=== PATIENT | female | born 1980 | race African-American/Black ===

== ENCOUNTER → 2019-04-06 | Outpatient (CLI) | payer MEDICARE | END | disposition home or self-care (01) | LOC: OIH 04-05 09:56 | PROVIDERS: ATTEND Internal Medicine | DX: J45.909 Unspecified asthma, uncomplicated (principal); R07.9 Chest pain, unspecified | CPT/HCPCS: 71046 ==

== ENCOUNTER 2020-05-28 09:06 | Observation (INO) | payer OTHER ==
[2020-05-28] VITALS (10 sets, daily range): BP systolic 126–173; BP diastolic 77–110
[~2020-05-28] VITALS: Ht 170.2 cm; Wt 90.7 kg
[2020-05-28 10:12] LABS: BASOPHILS % (AUTO) 0.9 % (0.0-5.0); EOSINOPHILS % (AUTO) 0.1 % (0.0-8.0); HEMATOCRIT 46.5 % (36-48); LYMPHOCYTES % (AUTO) 10.7 % (21.0-51.0); MEAN CORPUSCULAR HEMOGLOBIN 30.6 pg (27.0-33.0); MEAN CORPUSCULAR HGB CONC 33.3 g/dL (32.0-36.0); MEAN CORPUSCULAR VOLUME 91.9 fL (79-99); MONOCYTES % (AUTO) 8.3 % (3.0-13.0); NEUTROPHILS % (AUTO) 72.8 % (40.0-77.0); NUCLEATED RED BLOOD CELLS 0.2 % (0.0-0.19); PLATELET COUNT (AUTO) 263 K/uL (130-400); RED BLOOD CELL COUNT(AUTO) 5.06 MIL/uL (4.00-5.50); RED CELL DISTRIBUTION WIDTH 14.7 % (11.0-15.5); WHITE BLOOD COUNT (AUTO) 9.6 K/uL (4.8-10.8)
[2020-05-28 10:19] LABS: CARBON DIOXIDE 32 mmol/L (21-32); CHLORIDE 102 mmol/L (101-111); GLOMERULAR FILTR. RATE CALC 79 mL/min (>60); GLUCOSE,RANDOM 143 mg/dL (70-105); POTASSIUM 3.8 mmol/L (3.5-5.1); SODIUM SERUM 137 mmol/L (136-145); UREA NITROGEN, BLOOD 14 mg/dL (7-18)
[2020-05-28 10:24] LABS: ALANINE AMINOTRANSFERASE 47 U/L (12-78); ALBUMIN 2.4 g/dL (3.5-5.0); ASPARTATE AMINOTRANSFERASE 49 U/L (10-37); BILIRUBIN,TOTAL 0.3 mg/dL (0.2-1.0); TOTAL PROTEIN, SERUM 5.9 g/dL (6.0-8.3)
[2020-05-28 10:30] LABS: AMMONIA < 3 umol/L (11-32)
[2020-05-28 10:36] LABS: INR 0.85 (0.85-1.15); PARTIAL THROMBOPLASTIN TIME 21.4 SEC (26.3-35.5); PROTHROMBIN TIME 9.2 SEC (9.6-11.6)
--- NOTE | 2020-05-28 13:36 | NUR ---
U/S GD RENAL BX PROCEDURE PERFORMED BY DR Yoel TINSLEY. PUNCTURE SITE LT LOWER BACK AND PATIENT TOLERATED PROCEDURE WELL. SPECIMEN X 3 COLLECTED AND SENT TO LAB. END OF PROCEDURE AT 1325. BIOPSY NEEDLE REMOVED AND DRESSING APPLIED. NO BLEEDING NOTED. REPORT GIVEN TO DALE BAIRD AND PATIENT TRANSPORTED TO [facility] VIA BED AT 1345. AAO X3 WITH NO C/O PAIN.
[2020-05-28] MEDS ORDERED: ONDANSETRON HCL 4 MG/2 ML VIAL IVP PRN (15:45)
[2020-05-28] MEDS ORDERED: ACETAMINOPHEN 325 MG TAB PO PRN (15:45)
--- NOTE | 2020-05-28 20:00 | NUR ---
assessment note patient awake alert, ox3, no sob , no c/o pain at this time, patients sister at bedside, extensive discussion regarding plan of care and expected outcome, both verbalize understanding via back, dressing left lateral/back d/i, racking urine , urine clear yellow no bleeding, call burrell at reach
[2020-05-29 03:35] VITALS: BP 134/86
[2020-05-29 05:34] LABS: HEMATOCRIT 41.5 % (36-48); MEAN CORPUSCULAR HEMOGLOBIN 30.5 pg (27.0-33.0); MEAN CORPUSCULAR HGB CONC 33.3 g/dL (32.0-36.0); MEAN CORPUSCULAR VOLUME 91.6 fL (79-99); PLATELET COUNT (AUTO) 217 K/uL (130-400); RED BLOOD CELL COUNT(AUTO) 4.53 MIL/uL (4.00-5.50); RED CELL DISTRIBUTION WIDTH 14.6 % (11.0-15.5); WHITE BLOOD COUNT (AUTO) 7.8 K/uL (4.8-10.8)
[2020-05-29 06:00] LABS: BAND NEUTROPHILS % (MANUAL) 4 % (0-2); LYMPHOCYTES % (MANUAL) 24 % (22-44); MAN.DIFF COMMENT-IMPRESSION MANUAL DIFFERENTIAL; MONOCYTES % (MANUAL) 12 % (2-9); REACTIVE LYMPHOCYTES 1 % (0-0); SEGMENTED NEUTROPHILS % 59 % (40-70)
[2020-05-29 06:23] LABS: CREATININE 0.9 mg/dL (0.5-1.5); POTASSIUM 3.8 mmol/L (3.5-5.1)
[2020-05-29 08:35] VITALS: BP 127/91
[2020-05-29 11:55] VITALS: BP 128/104
--- NOTE | 2020-05-29 14:21 | NUR ---
MET WITH PT AND SISTER AT BEDSIDE PATIENT W HISTORY OF LUPUS X 16 YEARS MOVES FROM [place] TO [facility] RECENTLY FOR THE WARMTH, REFERRAL TO NEPHROLOGY IN JANUARY FOR RENAL FAILURE LIVES ALONE, NO DME, NO PROVIDER SERVICES BUT IN PROCESS.. WEAK AT TIMES, MIGHT NEED DME ON THIS ADMIT, VERY SWOLLEN TO BILATERAL LE, PT EVAL PENDING. WILL FOLLOW UP WITH ADMIT MD FOR HH /[place] CM TO FOLLOW Addendum: 05/29/20 at 1428 by REYNALDO LACKEY RN CM Amended: Links added.
--- NOTE | 2020-05-29 16:05 | NUR ---
NUTRITION EDUCATION RD provided Anti-Inflammatory Nutrition Education. Pt with various foods not tolerated. Pt well aware of trigger foods. Needing assistance with meal planning and consuming adequate protein. RD was able to provide meal planning chart and food guides. Pt was appreciative of handouts provided. Addendum: 05/29/20 at [address] RD Amended: Links added.
--- NOTE | 2020-05-29 16:18 | NUR ---
PT FOR DC TODAY. GAVE PT EVAL AND RECOMMENDATION FOR ROLLING WALKER FOR PATIENT TO TAKE TO DR. PATEL'S OFFICE. VERBALIZED UNDERSTANDING Addendum: 05/29/20 at 1620 by REYNALDO LACKEY RN CM Amended: Links added.
[2020-05-29 16:20] VITALS: BP 130/93
--- NOTE | 2020-05-29 16:35 | NUR ---
d/c PT IS AAOX4 VS STABLE URINE YELLOW AND NO PAIN. PT LEAVING VIA WHEELCHAIR IN PVT CAR D/C INSTRUCTIONS AND LABS WERE GIVEN TO PATIENT AND INSTRUCTED TO F/U WITH DR. TINSLEY IN 1-[address] PATEL IN 2-3 DAYS. NO COMPLICATIONS UPON D/C
== END 2020-05-29 16:45 | disposition home or self-care (01) ==
LOC: EDH 09:06 → 4BH 09:07
PROVIDERS: ADMIT Internal Medicine Nephrology; ATTEND Internal Medicine Nephrology
DX: M32.14 Glomerular disease in systemic lupus erythematosus (principal); R80.9 Proteinuria, unspecified; N04.9 Nephrotic syndrome with unspecified morphologic changes; I34.0 Nonrheumatic mitral (valve) insufficiency; R77.0 Abnormality of albumin; R76.0 Raised antibody titer; N28.89 Other specified disorders of kidney and ureter; Z88.0 Allergy status to penicillin; Z88.1 Allergy status to other antibiotic agents; Z88.2 Allergy status to sulfonamides; Z88.5 Allergy status to narcotic agent; Z88.8 Allergy status to other drugs, medicaments and biological substances
CPT/HCPCS: 36415 ×2; 50200; 76942; 80048; 80053; 81025; 82140; 82948 ×2; 85025 ×2; 85610; 85730; 97161; 99284; G0378 ×16; G8978; G8979; G8980; G8981; G8982; G8983

== ENCOUNTER → 2020-08-21 | Outpatient (CLI) | payer OTHER | END | disposition home or self-care (01) | LOC: OIH 15:53 | PROVIDERS: ATTEND Internal Medicine | DX: I10 Essential (primary) hypertension (principal) | CPT/HCPCS: 71046 ==

== ENCOUNTER → 2020-12-02 | Outpatient (CLI) | payer OTHER | END | disposition home or self-care (01) | LOC: SHCH 13:30 | PROVIDERS: ATTEND Internal Medicine Cardiovascular Disease | DX: I08.1 Rheumatic disorders of both mitral and tricuspid valves (principal); I30.0 Acute nonspecific idiopathic pericarditis; I27.20 Pulmonary hypertension, unspecified | CPT/HCPCS: 93306; 93356 ==

== ENCOUNTER 2022-07-05 10:04 | Observation (INO) | payer OTHER ==
[~2022-07-05] VITALS: Ht 170.2 cm; Wt 64.0 kg
[2022-07-05 11:31] LABS: BASOPHILS % (AUTO) 0.3 % (0.0-5.0); EOSINOPHILS % (AUTO) 0.3 % (0.0-8.0); HEMATOCRIT 26.6 % (36-48); LYMPHOCYTES % (AUTO) 4.2 % (21.0-51.0); MEAN CORPUSCULAR HEMOGLOBIN 28.8 pg (27.0-33.0); MEAN CORPUSCULAR HGB CONC 32.3 g/dL (32.0-36.0); MONOCYTES % (AUTO) 7.4 % (3.0-13.0); NEUTROPHILS % (AUTO) 87.2 % (40.0-77.0); PLATELET COUNT (AUTO) 334 K/uL (130-400); RED BLOOD CELL COUNT(AUTO) 2.99 MIL/uL (4.00-5.50); RED CELL DISTRIBUTION WIDTH 13.3 % (11.0-15.5); WHITE BLOOD COUNT (AUTO) 8.6 K/uL (4.8-10.8)
[2022-07-05 11:42] LABS: ALBUMIN 3.2 g/dL (3.5-5.0); POTASSIUM 4.6 mmol/L (3.5-5.1)
[2022-07-05 11:47] LABS: TOTAL PROTEIN, SERUM 7.8 g/dL (6.0-8.3)
[2022-07-05 11:53] LABS: CREATININE 11.6 mg/dL (0.5-1.5)
[2022-07-05 12:08] LABS: APPEARANCE,URINE CLEAR (CLEAR); BILIRUBIN,URINE NEGATIVE (NEGATIVE); COLOR,URINE LIGHT-YELLOW (YELLOW); GLUCOSE, URINE (UA) NEGATIVE (NEGATIVE); KETONES,URINE NEGATIVE (NEGATIVE); LEUKOCYTE ESTERASE ,URINE NEGATIVE Leu/uL (NEGATIVE); NITRATE,URINE NEGATIVE (NEGATIVE); PROTEIN,URINE 200 mg/dL (NEGATIVE); UROBILINOGEN,URINE 0.2 mg/dL (0.2-1.0)
[2022-07-05 12:20] LABS: MUCUS,URINE RARE LPF (None Seen); RBC,URINE 0-1 /HPF (0-1); SQUAMOUS EPITHELIAL CELL,UR RARE /HPF (0-2)
[2022-07-05] MEDS ORDERED: HYDRALAZINE 20MG/ML VIAL IV ONE (13:00)
[2022-07-05] MEDS ORDERED: FUROSEMIDE 40MG VIAL IV ONE (13:00)
[2022-07-05] MEDS ORDERED: ONDANSETRON 4MG INJ IVP PRN (15:00)
[2022-07-05] MEDS ORDERED: PANT40GR PO (15:04)
[2022-07-05] MEDS ORDERED: SODI650T PO (15:04)
[2022-07-05] MEDS ORDERED: FERR325T22 PO (15:04)
[2022-07-05] MEDS ORDERED: PRED5TAB44 PO (15:04)
[2022-07-05] MEDS ORDERED: HYDR-4154 PO (15:04)
[2022-07-05] MEDS ORDERED: FOLI0.8T22 PO (15:04)
[2022-07-05] MEDS ORDERED: TORS20TA4 PO (15:04)
[2022-07-05] MEDS ORDERED: AMLODIPINE 5 MG TAB ONE (15:10)
[2022-07-05] MEDS ORDERED: HYDRALAZINE 25MG TABLET ONE (15:11)
[2022-07-05] MEDS: ACETAMINOPHEN 500 MG TABLET PO PRN ×2 (15:20→22:03)
[2022-07-05] MEDS ORDERED: CARVEDILOL 25 MG TABLET PO ONE (16:58)
[2022-07-05] MEDS: HYDRALAZINE 25MG TABLET PO SCH (19:12)
[2022-07-05] MEDS: CARVEDILOL 25 MG TABLET PO SCH ×2 (19:59→21:00)
[2022-07-06 02:17] VITALS: BP 169/104
[2022-07-06 04:00] VITALS: BP 153/104
[2022-07-06 05:16] VITALS: BP 158/97
[2022-07-06 05:49] LABS: BASOPHILS % (AUTO) 0.3 % (0.0-5.0); EOSINOPHILS % (AUTO) 0.8 % (0.0-8.0); HEMATOCRIT 24.6 % (36-48); LYMPHOCYTES % (AUTO) 9.4 % (21.0-51.0); MEAN CORPUSCULAR HGB CONC 32.5 g/dL (32.0-36.0); MEAN CORPUSCULAR VOLUME 89.1 fL (79-99); MONOCYTES % (AUTO) 13.4 % (3.0-13.0); NEUTROPHILS % (AUTO) 75.8 % (40.0-77.0); PLATELET COUNT (AUTO) 326 K/uL (130-400); RED BLOOD CELL COUNT(AUTO) 2.76 MIL/uL (4.00-5.50); RED CELL DISTRIBUTION WIDTH 13.6 % (11.0-15.5); WHITE BLOOD COUNT (AUTO) 7.1 K/uL (4.8-10.8)
[2022-07-06 06:02] LABS: ALBUMIN 2.8 g/dL (3.5-5.0); MAGNESIUM 1.5 mg/dL (1.80-2.40); PHOSPHORUS 7.8 mg/dL (2.5-4.9); POTASSIUM 4.5 mmol/L (3.5-5.1)
[2022-07-06 06:06] LABS: CREATININE 11.8 mg/dL (0.5-1.5)
[2022-07-06] MEDS ORDERED: MAGNESIUM 2GM PREMIX 50ML 50 ML IV PRN (07:00)
[2022-07-06 08:00] VITALS: BP 167/97
[2022-07-06] MEDS: HYDRALAZINE 25MG TABLET PO SCH ×2 (08:29→14:14)
[2022-07-06] MEDS: CARVEDILOL 25 MG TABLET PO SCH (08:30)
[2022-07-06] MEDS ORDERED: FERROUS SULFATE 325 MG TABLET.DR PO SCH (09:00)
[2022-07-06] MEDS ORDERED: TORSEMIDE 20 MG TAB PO SCH (09:00)
[2022-07-06] MEDS ORDERED: AMLODIPINE 5 MG TAB PO SCH (09:00)
[2022-07-06] MEDS ORDERED: PREDNISONE 5 MG TABLET PO SCH (09:00)
[2022-07-06] MEDS ORDERED: HYDRALAZINE 25MG TABLET PO SCH (09:00)
[2022-07-06] MEDS ORDERED: PANTOPRAZOLE 40 MG TAB DR PO SCH (09:00)
[2022-07-06] MEDS ORDERED: Vitamin B Complex/Vit C/Folic Acid PO SCH ×2 (09:00)
[2022-07-06] MEDS ORDERED: SODIUM BICARBONATE 650 MG TAB PO SCH (09:00)
[2022-07-06 11:00] VITALS: BP 137/89
[2022-07-06 16:00] VITALS: BP 142/89
== END 2022-07-06 17:30 | disposition home or self-care (01) ==
LOC: EDH 10:04 → EDHIP 13:43 → 4CH 07-06 02:17
PROVIDERS: ADMIT Internal Medicine; ATTEND Internal Medicine
DX: I16.1 Hypertensive emergency (principal); Z20.822 Contact with and (suspected) exposure to COVID-19; I13.2 Hypertensive heart and chronic kidney disease with heart failure and with stage 5 chronic kidney disease, or end stage renal disease; I50.30 Unspecified diastolic (congestive) heart failure; N18.5 Chronic kidney disease, stage 5; N17.9 Acute kidney failure, unspecified; D63.1 Anemia in chronic kidney disease; I16.0 Hypertensive urgency; I25.10 Atherosclerotic heart disease of native coronary artery without angina pectoris; I27.20 Pulmonary hypertension, unspecified; E87.8 Other disorders of electrolyte and fluid balance, not elsewhere classified; E87.70 Fluid overload, unspecified; E78.5 Hyperlipidemia, unspecified; N04.9 Nephrotic syndrome with unspecified morphologic changes; M32.14 Glomerular disease in systemic lupus erythematosus; Z79.60 Long term (current) use of unspecified immunomodulators and immunosuppressants; Z91.15 Patient's noncompliance with renal dialysis; Z91.199 Patient's noncompliance with other medical treatment and regimen due to unspecified reason; Z99.2 Dependence on renal dialysis; Z88.0 Allergy status to penicillin; Z79.899 Other long term (current) drug therapy
CPT/HCPCS: 96365; 96366; 96375; 99285; 84484; 80053 ×2; 83880; 85025 ×2; 87804 ×2; 81001; 36415 ×2; 87635; 71045; 93005; 83735; 84100; G0378 ×27; C9803; J0360; J2405; J1940; J3475; J7512

== ENCOUNTER 2022-10-06 17:10 | Emergency (ER) | payer OTHER ==
[~2022-10-06] VITALS: Ht 170.2 cm; Wt 84.8 kg
[~2022-10-06 17:10] MED LIST: FERR325T22 PO; FOLI0.8T22 PO; HYDR-4154 PO; PANT40GR PO; PRED5TAB44 PO; SODI650T PO; TORS20TA4 PO
[2022-10-06 18:41] LABS: BASOPHILS % (AUTO) 0.4 % (0.0-5.0); EOSINOPHILS % (AUTO) 0.8 % (0.0-8.0); HEMATOCRIT 22.4 % (36-48); LYMPHOCYTES % (AUTO) 7.2 % (21.0-51.0); MEAN CORPUSCULAR HEMOGLOBIN 28.1 pg (27.0-33.0); MEAN CORPUSCULAR HGB CONC 32.6 g/dL (32.0-36.0); MEAN CORPUSCULAR VOLUME 86.2 fL (79-99); MONOCYTES % (AUTO) 12.4 % (3.0-13.0); NEUTROPHILS % (AUTO) 78.4 % (40.0-77.0); PLATELET COUNT (AUTO) 121 K/uL (130-400); RED CELL DISTRIBUTION WIDTH 14.2 % (11.0-15.5); WHITE BLOOD COUNT (AUTO) 2.5 K/uL (4.8-10.8)
[2022-10-06 18:42] LABS: APPEARANCE,URINE CLOUDY (CLEAR); BILIRUBIN,URINE NEGATIVE (NEGATIVE); COLOR,URINE LIGHT-YELLOW (YELLOW); GLUCOSE, URINE (UA) 30 mg/dL (NEGATIVE); KETONES,URINE NEGATIVE (NEGATIVE); LEUKOCYTE ESTERASE ,URINE NEGATIVE Leu/uL (NEGATIVE); NITRATE,URINE NEGATIVE (NEGATIVE); OCCULT BLOOD,URINE SMALL (NEGATIVE); PROTEIN,URINE 300 mg/dL (NEGATIVE); UROBILINOGEN,URINE 0.2 mg/dL (0.2-1.0)
[2022-10-06 18:47] LABS: BACTERIA,URINE FEW /HPF (None Seen); RBC,URINE 0-1 /HPF (0-1); SQUAMOUS EPITHELIAL CELL,UR MOD /HPF (0-2); YEAST,URINE BUDDING RARE /HPF (None Seen)
[2022-10-06 18:56] LABS: ALBUMIN 2.8 g/dL (3.5-5.0); POTASSIUM 5.3 mmol/L (3.5-5.1); TOTAL PROTEIN, SERUM 6.1 g/dL (6.0-8.3)
[2022-10-06 19:10] LABS: CREATININE 28.1 mg/dL (0.5-1.5)
[2022-10-06 19:24] LABS: BAND NEUTROPHILS % (MANUAL) 4 % (0-2); EOSINOPHILS % (MANUAL) 1 % (1-6); LYMPHOCYTES % (MANUAL) 9 % (22-44); MAN.DIFF COMMENT-IMPRESSION MANUAL DIFFERENTIAL; MONOCYTES % (MANUAL) 6 % (2-9); SEGMENTED NEUTROPHILS % 80 % (40-70)
[2022-10-06] MEDS ORDERED: FUROSEMIDE 40MG VIAL IV STA (20:29)
[2022-10-06] MEDS ORDERED: CARVEDILOL 25 MG TABLET PO ONE (20:30)
[2022-10-06] MEDS ORDERED: CLONIDINE HCL 0.1 MG TABLET PO ONE (23:30)
[2022-10-07 00:23] LABS: B-TYPE NATRIURETIC PEPTIDE 3417 pg/mL (0-100)
[2022-10-07 01:26] VITALS: BP 158/90
== END 2022-10-07 01:39 | disposition home or self-care (01) ==
LOC: EDH 17:10
DX: N18.9 Chronic kidney disease, unspecified (principal); R60.0 Localized edema; Z79.899 Other long term (current) drug therapy; Z98.890 Other specified postprocedural states; Z88.0 Allergy status to penicillin; Z88.2 Allergy status to sulfonamides; Z88.5 Allergy status to narcotic agent; Z88.6 Allergy status to analgesic agent; Z88.8 Allergy status to other drugs, medicaments and biological substances
CPT/HCPCS: 99285; 80053; 83880; 85025; 87088; 81001; 36415; 71046; 96374; J1940

== ENCOUNTER 2022-12-29 14:41 | Emergency (ER) | payer OTHER ==
[~2022-12-29] VITALS: Ht 170.2 cm; Wt 61.2 kg
[~2022-12-29 14:41] MED LIST changes: +CALC667C10 PO; +CARV25TA PO; +GABA-529 PO; +SEVE0.8P3 PO
[2022-12-29] MEDS ORDERED: MORPHINE 4 MG SYG IVP ONE (15:30)
[2022-12-29] MEDS ORDERED: ONDANSETRON 4MG INJ IV ONE (15:30)
[2022-12-29] MEDS ORDERED: LABETALOL 20MG SYG IV ONE (15:30)
[2022-12-29 16:06] LABS: BASOPHILS % (AUTO) 1.8 % (0.0-5.0); EOSINOPHILS % (AUTO) 1.5 % (0.0-8.0); HEMATOCRIT 38.8 % (36-48); LYMPHOCYTES % (AUTO) 24.3 % (21.0-51.0); MEAN CORPUSCULAR HEMOGLOBIN 30.1 pg (27.0-33.0); MEAN CORPUSCULAR HGB CONC 31.7 g/dL (32.0-36.0); MEAN CORPUSCULAR VOLUME 94.9 fL (79-99); MONOCYTES % (AUTO) 10.3 % (3.0-13.0); NEUTROPHILS % (AUTO) 61.7 % (40.0-77.0); NUCLEATED RED BLOOD CELLS 1.5 % (0.0-0.19); PLATELET COUNT (AUTO) 115 K/uL (130-400); RED BLOOD CELL COUNT(AUTO) 4.09 MIL/uL (4.00-5.50); RED CELL DISTRIBUTION WIDTH 16.6 % (11.0-15.5); WHITE BLOOD COUNT (AUTO) 2.7 K/uL (4.8-10.8)
[2022-12-29 16:20] LABS: ALBUMIN 3.2 g/dL (3.5-5.0); POTASSIUM 5.7 mmol/L (3.5-5.1); TOTAL PROTEIN, SERUM 7.8 g/dL (6.0-8.3)
[2022-12-29 16:23] LABS: CREATININE 9.5 mg/dL (0.5-1.5)
[2022-12-29 16:34] LABS: BAND NEUTROPHILS % (MANUAL) 6 % (0-2); EOSINOPHILS % (MANUAL) 2 % (1-6); LYMPHOCYTES % (MANUAL) 23 % (22-44); MONOCYTES % (MANUAL) 6 % (2-9); REACTIVE LYMPHOCYTES 3 % (0-0); SEGMENTED NEUTROPHILS % 60 % (40-70)
[2022-12-29 16:35] LABS: MAN.DIFF COMMENT-IMPRESSION MANUAL DIFFERENTIAL; PLATELET MORPHOLOGY COMMENT LARGE PLTS PRESENT
[2022-12-29 17:12] LABS: ERYTHROCYTE SEDIMENTATION RATE 21 MM/HR (0-20)
[2022-12-29 17:33] VITALS: BP 142/99
[2022-12-29] MEDS ORDERED: LOSA50TA64 PO (18:02)
[2022-12-29] MEDS ORDERED: PRED20TA3 PO (18:02)
[2022-12-29] MEDS ORDERED: HYDR-4060 PO (18:13)
[2022-12-29] MEDS ORDERED: SOLU-MEDROL 40MG VIAL IVP ONE ×2 (18:30)
[2022-12-30] MEDS ORDERED: FOLI1TAB85 PO (22:59)
[2022-12-30] MEDS ORDERED: PANT40TA54 PO (22:59)
[2022-12-30] MEDS ORDERED: ONDA4TAB10 SL (22:59)
[2022-12-30] MEDS ORDERED: SEVE400T PO (22:59)
[2022-12-30] MEDS ORDERED: FLUT16H EN (22:59)
== END 2022-12-29 18:29 | disposition home or self-care (01) ==
LOC: EDH 14:41
DX: N18.9 Chronic kidney disease, unspecified (principal); N18.6 End stage renal disease; M32.14 Glomerular disease in systemic lupus erythematosus; R51.9 Headache, unspecified; Z79.52 Long term (current) use of systemic steroids; Z79.899 Other long term (current) drug therapy; Z86.73 Personal history of transient ischemic attack (TIA), and cerebral infarction without residual deficits; Z88.0 Allergy status to penicillin; Z88.2 Allergy status to sulfonamides; Z88.5 Allergy status to narcotic agent; Z88.6 Allergy status to analgesic agent; Z99.2 Dependence on renal dialysis
CPT/HCPCS: 99284; 96374; 96375; 80053; 85025; 85651; 36415; J2405; J2920 ×2; J2270

== ENCOUNTER 2022-12-30 12:46 | Observation (INO) | payer OTHER ==
[2022-12-30] VITALS (15 sets, daily range): BP systolic 174–198; BP diastolic 126–140
[~2022-12-30] VITALS: Ht 170.2 cm; Wt 63.1 kg
[~2022-12-30 12:46] MED LIST changes: +HYDR-4060 PO; +LOSA50TA64 PO; +PRED20TA3 PO
[2022-12-30 14:01] LABS: HEMATOCRIT 40.7 % (36-48); LYMPHOCYTES % (AUTO) 21.4 % (21.0-51.0); MEAN CORPUSCULAR HEMOGLOBIN 30.1 pg (27.0-33.0); MEAN CORPUSCULAR HGB CONC 31.9 g/dL (32.0-36.0); MEAN CORPUSCULAR VOLUME 94.2 fL (79-99); MONOCYTES % (AUTO) 8.4 % (3.0-13.0); NEUTROPHILS % (AUTO) 69.8 % (40.0-77.0); NUCLEATED RED BLOOD CELLS 3.1 % (0.0-0.19); PLATELET COUNT (AUTO) 94 K/uL (130-400); RED BLOOD CELL COUNT(AUTO) 4.32 MIL/uL (4.00-5.50); RED CELL DISTRIBUTION WIDTH 16.7 % (11.0-15.5); WHITE BLOOD COUNT (AUTO) 2.6 K/uL (4.8-10.8)
[2022-12-30 14:26] LABS: INR 1.19 (0.85-1.15); PROTHROMBIN TIME 12.8 SEC (9.6-11.6)
[2022-12-30 15:09] LABS: ALBUMIN 3.4 g/dL (3.5-5.0); MAGNESIUM 2.7 mg/dL (1.80-2.40); TOTAL PROTEIN, SERUM 8.3 g/dL (6.0-8.3)
[2022-12-30 15:10] LABS: POTASSIUM 7.3 mmol/L (3.5-5.1)
[2022-12-30] MEDS ORDERED: DEXTROSE 50%-WATER 25 GM/50 ML VIAL IV ONE (15:30)
[2022-12-30] MEDS ORDERED: INSULIN HUMULIN R 100 UNIT/ML 3ML IV ONE (15:30)
[2022-12-30] MEDS ORDERED: CALCIUM GLUC 1GM 1 GM in 0.9%NACL 100ML 100 ML IV ONE (15:30)
[2022-12-30] MEDS ORDERED: SODIUM ZIRCONIUM CYCLOSILICATE 5 GM POWD.PACK PO SCH (15:30)
[2022-12-30] MEDS ORDERED: CALCIUM GLUC 1GM/10ML VIAL ONE (15:49)
[2022-12-30] MEDS ORDERED: DEXTROSE 50%-WATER 50 ML DISP.SYRIN IV ONE (15:50)
[2022-12-30] MEDS ORDERED: ACETAMINOPHEN 500 MG TABLET PO PRN (18:00)
[2022-12-30] MEDS ORDERED: HEPARIN 5,000 UNIT VIAL IV SCH (21:00)
[2022-12-30] MEDS: HYDROCODONE/ACETAMINOPHEN 5/325 MG TAB PO PRN (21:56)
[2022-12-30] MEDS ORDERED: FLUT16H EN (22:59)
[2022-12-30] MEDS ORDERED: PANT40TA54 PO (22:59)
[2022-12-30] MEDS ORDERED: FOLI1TAB85 PO (22:59)
[2022-12-30] MEDS ORDERED: ONDA4TAB10 SL (22:59)
[2022-12-30] MEDS ORDERED: SEVE400T PO (22:59)
[2022-12-30] MEDS ORDERED: LOSARTAN 50 MG TABLET PO ONE (23:30)
[2022-12-30] MEDS ORDERED: CARVEDILOL 25 MG TABLET PO ONE (23:30)
[2022-12-31] VITALS (22 sets, daily range): BP systolic 152–209; BP diastolic 32–158
[2022-12-31] MEDS ORDERED: MORPHINE 4 MG SYG IVP ONE (01:00)
[2022-12-31] MEDS: CLONIDINE HCL 0.1 MG TABLET PO ONE ×2 (01:07→01:16)
[2022-12-31] MEDS ORDERED: HYDROXYZINE 25 MG TABLET PO ONE (01:30)
[2022-12-31 02:30] LABS: HEPATITIS B SURFACE ANTIGEN Non-Reactive (Nonreactive)
[2022-12-31] MEDS ORDERED: HEPARIN 5,000 UNIT VIAL IRRIG SCH (06:30)
[2022-12-31] MEDS ORDERED: SEVELAMER HCL 800 MG TABLET PO SCH (08:00)
[2022-12-31] MEDS: CARVEDILOL 25 MG TABLET PO SCH ×2 (08:03→22:10)
[2022-12-31] MEDS ORDERED: MORPHINE 4 MG SYG IM ONE (08:30)
[2022-12-31] MEDS ORDERED: LOSARTAN 50 MG TABLET PO SCH (09:00)
[2022-12-31] MEDS: HYDROCODONE/ACETAMINOPHEN 5/325 MG TAB PO PRN (20:11)
[2022-12-31] MEDS ORDERED: MORPHINE 2 MG SYG IVP SCH (22:30)
== END 2022-12-31 23:20 | disposition home or self-care (01) ==
LOC: EDH 12:46 → EDHIP 15:35 → 3BH 18:13
PROVIDERS: ADMIT Internal Medicine; ATTEND Internal Medicine
DX: E87.5 Hyperkalemia (principal); I12.0 Hypertensive chronic kidney disease with stage 5 chronic kidney disease or end stage renal disease; N18.6 End stage renal disease; M32.9 Systemic lupus erythematosus, unspecified; M32.14 Glomerular disease in systemic lupus erythematosus; G43.909 Migraine, unspecified, not intractable, without status migrainosus; Z91.199 Patient's noncompliance with other medical treatment and regimen due to unspecified reason; Z99.2 Dependence on renal dialysis; Z79.899 Other long term (current) drug therapy; Z98.890 Other specified postprocedural states
CPT/HCPCS: 96365; 96366; 96375 ×2; 83735; 84484; 84132; 80053; 84703; 85025; 85610; 86706; 87340; 86704; 36415; 71045; 70450; 99291; 93005; 96376; 96372; G0378 ×25; J7070 ×2; J0610 ×2; J1644 ×2; J1815; J2270 ×3; 90935

== ENCOUNTER 2023-01-29 16:59 | Emergency (ER) | payer OTHER ==
[~2023-01-29] VITALS: Ht 170.2 cm; Wt 61.7 kg
[~2023-01-29 16:59] MED LIST changes: +FLUT16H EN; -FOLI0.8T22 PO; +FOLI1TAB85 PO; +ONDA4TAB10 SL; +PANT40TA54 PO; -PRED20TA3 PO; -SEVE0.8P3 PO; +SEVE400T PO
[2023-01-29 17:01] VITALS: BP 155/106
== END 2023-01-29 19:13 | disposition home or self-care (01) ==
LOC: EDH 16:59
DX: T82.898A Other specified complication of vascular prosthetic devices, implants and grafts, initial encounter (principal); R07.89 Other chest pain; M32.9 Systemic lupus erythematosus, unspecified; Z79.899 Other long term (current) drug therapy; Z88.0 Allergy status to penicillin; Z88.2 Allergy status to sulfonamides; Z88.5 Allergy status to narcotic agent; Z88.6 Allergy status to analgesic agent; Z99.2 Dependence on renal dialysis; Y93.89 Activity, other specified; Y92.89 Other specified places as the place of occurrence of the external cause
CPT/HCPCS: 71045